=== PATIENT | male | born 1955 | race Caucasian/White ===

== ENCOUNTER 2020-11-03 12:37 | Outpatient (CLI) | payer MEDICARE, OTHER, SELFPAY ==
--- NOTE | 2020-11-03 12:46 | MR_ITS ---
WS: [id number] MRI HEAD WITH CONTRAST WITH ATTENTION TO THE INTERNAL AUDITORY CANALS TECHNIQUE: Sagittal T1, T2 axial, T2 axial flair, axial susceptibility weighted imaging, axial diffus ion weighted images, and coronal T2 images were obtained. Pre and post T1 axial and post T1 coronal i mages. ADC and FSPGR images. Post gadolinium images with attention to the internal auditory canals. A xial fiesta imaging. CLINICAL INFORMATION: MIXED CONDUCTIVE AND SENSORINEURAL HEARING LOSS, UNSPECIFIED COMPARISON: FINDINGS: Enhancing right IAC acoustic schwannoma measuring approximately 3.4 x 7.4 x 5.1 mm. This is decreased in size from the prior examination. Left IAC is normal in appearance. Normal left 7th and 8th crania l nerves. No evidence of restricted diffusion to suggest acute ischemia. Ventricular system and basal cisterns are patent. Mild small vessel changes. Mild parenchymal volume loss. Normal posterior fossa. Normal v ascular flow voids at the skull base. No extra-axial fluid collections. Paranasal sinuses and mastoid air cells are well aerated. Mild mucosal thickening right maxillary sinus. No hemosiderin on susceptibly weighted images. Normal trigeminal nerve root entry zones. Normal dural venous sinuses. MR/MR iac's wo/w con* [id number] IMPRESSION: 1. Enhancing IAC acoustic schwannoma measuring approximately 3.4 x 7.4 x 5.1 m m. Previously this measured 6.5 x 11 x 5.9mm. This is decreased in size from th e prior examination. 2. Mild small vessel changes. Mild parenchymal volume loss. 3. No evidence of restricted diffusion to suggest acute ischemia. 4. No other significant findings.
[2020-11-03] MEDS: gadobenate dimeglumine 20 mL vial IV (13:45)
== END 2020-11-03 12:38 | disposition home or self-care (01) ==
LOC: RADSHAW 12:38
PROVIDERS: PCP Nurse Practitioner Family; Visit Provider Specialist
DX: H90.8 Mixed conductive and sensorineural hearing loss, unspecified (principal); D33.3 Benign neoplasm of cranial nerves
CPT/HCPCS: 70553; A9577

== ENCOUNTER 2023-10-23 12:34 | Outpatient (CLI) | payer MEDICARE, OTHER, SELFPAY ==
--- NOTE | 2023-10-23 12:44 | MR_ITS ---
WS: [id number] MRI BRAIN WITH HIGH-RESOLUTION IMAGING THROUGH THE INTERNAL AUDITORY CANALS WITHOUT AND WITH CONTRAST HISTORY: MIXED CONDUCTIVE SENSORINEURAL HEARING LOSS COMPARISON: 11/03/2020, 09/23/2011 TECHNIQUE: Multiplanar, multisequence imaging is performed through the brain. Additional 3 mm imaging performed in multiple planes through the internal auditory canal. Postcontrast imaging with 15 ml's of MultiHance. Previously described RIGHT IAC acoustic schwannoma is reidentified measuring 4 x 7 x 4 mm very simila r to the prior study from 11/03/2020. Moderate decrease in size as compared to 09/23/2011. No additiona l areas of abnormal enhancement. LEFT internal auditory canal is negative. No diffusion abnormalities. Mild atrophy and volume loss. Mild small vessel disease. No prior infarct . No hemorrhage. Normal hippocampal formations. Ventricles and extra-axial spaces are normal. No inferior displacement of cerebellar tonsils. Clivus and pituitary gland are normal. Paranasal sinuses: Normal. Mastoid air cells: Normal. Calvarium and scalp: Normal. Visualized ramona of [place] and dural venous sinuses demonstrate no abnormality. MR/MR iac's wo/w con* [id number] IMPRESSION: 1. Stable RIGHT IAC vestibular schwannoma since 11/03/2020. Schwannoma measures 4 x 7 x 4 mm. Decreased in size from the prior CT of 09/23/2011. 2. No new or additional masses. 3. Very minimal cerebral atrophy and volume loss.
[2023-10-23] MEDS: gadobenate dimeglumine 20 mL vial IV (14:23)
== END 2023-10-23 12:35 | disposition home or self-care (01) ==
LOC: RAD 12:35
PROVIDERS: PCP Nurse Practitioner Family; Visit Provider Family Medicine
DX: D33.3 Benign neoplasm of cranial nerves (principal)
CPT/HCPCS: 70553; A9577